=== PATIENT | female | born 1955 | race Two or more races ===

== ENCOUNTER 2018-10-08 05:23 | Inpatient (IN) | payer BC ==
[2018-10-08] VITALS (7 sets, daily range): BP systolic 114–153; BP diastolic 50–76
[~2018-10-08] VITALS: Ht 157.5 cm; Wt 76.7 kg
[~2018-10-08 05:23] MED LIST: ASPI-1159 PO; ATOR20TA65 PO; CHOL500063 PO; CLON0.5T PO; CYAN500T2 PO; FERR325T22 PO; FURO40TA5 PO; MAGN400C PO; METF-416 PO; NAPH1POW3 PO; POTA20TA82 PO; RIOC2.5T PO; TREP0.12 PO
[2018-10-08] MEDS ORDERED: INDOCYANINE GREEN 25 MG VIAL IV ONE (06:07)
[2018-10-08] MEDS ORDERED: SKIN ADHESIVE 0.7 GM EA TOP ONE (06:07)
[2018-10-08] MEDS ORDERED: BUPIVACAINE HCL 0.5% (5MG/ML) 50ML ONE (06:08)
[2018-10-08] MEDS ORDERED: FENTANYL CITRATE/PF 50MCG/ML 2ML VIAL ONE (07:38)
[2018-10-08] MEDS ORDERED: PROPOFOL 200MG/20ML VIAL IV ONE (07:38)
[2018-10-08] MEDS ORDERED: MIDAZOLAM HCL 2 MG/2 ML VIAL ONE (07:38)
[2018-10-08] MEDS ORDERED: ROCURONIUM BROMIDE 10MG/ML VIAL 5ML IV ONE ×2 (07:38→08:25)
[2018-10-08] MEDS ORDERED: ACETAMINOPHEN 325MG TABLET PO PRN (08:00)
[2018-10-08] MEDS ORDERED: ONDANSETRON HCL 4MG/2ML INJ IV PRN ×2 (08:00→09:45)
[2018-10-08] MEDS ORDERED: NEOSTIGMINE METHYLSULFATE 1MG/ML 10 ML VIAL ONE ×2 (08:53→09:13)
[2018-10-08] MEDS ORDERED: VECURONIUM BROMIDE 10 MG/VIAL IV ONE (08:53)
[2018-10-08] MEDS ORDERED: GLYCOPYRROLATE 0.2 MG/ML 2ML VIAL ONE (08:53)
[2018-10-08] MEDS ORDERED: MEPERIDINE HCL/PF 25MG/ML CPJ IV PRN (09:45)
[2018-10-08] MEDS ORDERED: FENTANYL CITRATE/PF 50MCG/ML 2ML VIAL IV PRN (09:45)
[2018-10-08] MEDS ORDERED: HYDROMORPHONE HCL/PF 2MG/ML CPJ IV PRN (09:45)
[2018-10-08] MEDS ORDERED: ESMOLOL HCL 10MG/ML 10ML VIAL IV ONE (09:47)
[2018-10-08] MEDS ORDERED: FUROSEMIDE 40MG/4ML VIAL IVP NR (10:19)
[2018-10-08] MEDS ORDERED: METOPROLOL TARTRATE 5MG/5ML VIAL IV NR (10:30)
[2018-10-08] MEDS ORDERED: METOPROLOL TARTRATE 5MG/5ML VIAL IV ONE (10:44)
[2018-10-08] MEDS ORDERED: FUROSEMIDE 40MG/4ML VIAL ONE (10:44)
[2018-10-08] MEDS: MORPHINE SULFATE 4 MG/ML CPJ (NOT FOR IM USE) IV PRN ×5 (11:23→17:03)
[2018-10-08] MEDS ORDERED: DEXTROSE 50% WATER 50ML SYRINGE IV PRN (13:45)
[2018-10-08] MEDS ORDERED: IPRATROPIUM/ALBUTEROL 0.5-3(2.5)MG/3ML NEB HHN PRN (13:45)
[2018-10-08] MEDS ORDERED: PANTOPRAZOLE SODIUM 40 MG/VIAL IV NR (15:20)
[2018-10-08] MEDS ORDERED: MORPHINE SULFATE 4 MG/ML CPJ (NOT FOR IM USE) IV PRN (15:23)
[2018-10-08] MEDS: SODIUM CHLORIDE 0.9% INJ 3ML FLUSH IVF SCH ×2 (15:43→19:50)
[2018-10-08 16:02] LABS: BG BASE EXCESS -0.2 mmol/L (-2.0-2.0); BG CARBOXYHEMOGLOBIN 0.8 % (0.5-1.5); BG DEOXYHEMOGLOBIN 7.2 % (0.0-5.0); BG FRACTION INSPIRED OXYGEN 36; BG METHEMOGLOBIN 0.3 % (0.0-1.5); BG OXYGEN SATURATION 92.7 % (92.0-98.5); BG OXYHEMOGLOBIN 91.7 % (94.0-97.0); BG PCO2 48.7 mmHg (35.0-45.0); BG PH 7.345 (7.350-7.450); BG PO2 70.7 mmHg (75.0-100.0); BG SAMPLE SITE RIGHT RADIAL; BG TOTAL HEMOGLOBIN 13.5 g/dL (12.0-18.0); BG VENT MODE NASAL CANNULA
[2018-10-08] MEDS: BUDESONIDE 0.5MG/2ML NEB HHN SCH ×2 (16:30→19:59)
[2018-10-08] MEDS: IPRATROPIUM/ALBUTEROL 0.5-3(2.5)MG/3ML NEB HHN SCH ×2 (16:31→19:57)
[2018-10-08 16:44] LABS: HEMATOCRIT. 40.8 % (36.0-48.0); HEMOGLOBIN. 13.2 g/dL (12.0-16.0); MEAN CORPUSCULAR VOLUME 86.8 fL (81.0-99.0); MEAN PLATELET VOLUME 8.9 fl (7.4-10.4); PLATELET 240 x1000/uL (130-400); RED BLOOD CELL COUNT 4.71 mill/uL (4.2-5.4)
[2018-10-08 16:52] LABS: CHLORIDE 101 mEq/L (98-107)
[2018-10-08] MEDS: INSULIN LISPRO 100 UNITS/ML SUBCUT SCH ×2 (17:33→21:00)
[2018-10-08] MEDS: DEXT 5%/0.45% NACL KCL 20MEQ/L 1,000 ML IV SCH (17:33)
[2018-10-08] MEDS: BLOOD SUGAR DIAGNOSTIC STRIP TEST SCH ×2 (17:33→21:52)
[2018-10-08 18:03] LABS: PLATELET ESTIMATE NORMAL
[2018-10-09] VITALS: BP 100/56
[2018-10-09 04:00] VITALS: BP 95/63
[2018-10-09] MEDS: SODIUM CHLORIDE 0.9% INJ 3ML FLUSH IVF SCH (04:32)
[2018-10-09] MEDS: IPRATROPIUM/ALBUTEROL 0.5-3(2.5)MG/3ML NEB HHN SCH ×4 (05:03→11:55)
[2018-10-09] MEDS: DEXT 5%/0.45% NACL KCL 20MEQ/L 1,000 ML IV SCH (05:26)
[2018-10-09] MEDS: MORPHINE SULFATE 4 MG/ML CPJ (NOT FOR IM USE) IV PRN (05:30)
[2018-10-09 06:00] VITALS: BP 105/54
[2018-10-09] MEDS: BLOOD SUGAR DIAGNOSTIC STRIP TEST SCH ×2 (07:30→12:30)
[2018-10-09 08:00] VITALS: BP 98/57
[2018-10-09] MEDS: INSULIN LISPRO 100 UNITS/ML SUBCUT SCH ×2 (08:00→13:00)
[2018-10-09] MEDS: BUDESONIDE 0.5MG/2ML NEB HHN SCH (08:07)
[2018-10-09] MEDS ORDERED: PANTOPRAZOLE SODIUM 40 MG/VIAL IV SCH (09:00)
[2018-10-09 10:00] VITALS: BP 100/55
[2018-10-09 11:25] VITALS: BP 95/53
== END 2018-10-09 16:55 | disposition home or self-care (01) | DRG 418 ==
LOC: OR 05:23 → 5EST 14:28
PROVIDERS: ADMIT Surgery; ATTEND Surgery
PROC: 0FT44ZZ Resection of Gallbladder, Percutaneous Endoscopic Approach (ICD-10-PCS; principal; 2018-10-08)
PROC: 8E0W4CZ Robotic Assisted Procedure of Trunk Region, Percutaneous Endoscopic Approach (ICD-10-PCS; 2018-10-08)
DX: K80.20 Calculus of gallbladder without cholecystitis without obstruction (principal); J96.10 Chronic respiratory failure, unspecified whether with hypoxia or hypercapnia; D64.9 Anemia, unspecified; E11.9 Type 2 diabetes mellitus without complications; E78.5 Hyperlipidemia, unspecified; I27.20 Pulmonary hypertension, unspecified; F41.9 Anxiety disorder, unspecified; I10 Essential (primary) hypertension; K58.9 Irritable bowel syndrome, unspecified; Z99.81 Dependence on supplemental oxygen; Z88.8 Allergy status to other drugs, medicaments and biological substances; Z88.6 Allergy status to analgesic agent; Z82.49 Family history of ischemic heart disease and other diseases of the circulatory system; Z90.49 Acquired absence of other specified parts of digestive tract; Z82.3 Family history of stroke; Z79.899 Other long term (current) drug therapy; Z79.84 Long term (current) use of oral hypoglycemic drugs; Z79.82 Long term (current) use of aspirin
CPT/HCPCS: 36415; 36600; 71045; 80048; 82375; 82805; 82962; 88304; 94002; 94640; C9113; J1940; J2250; J2270; J2405; J2704; J2710; J3010; J3490; J7620; J7626; Q9957

== ENCOUNTER → 2024-12-10 | Day surgery (SDC) | payer BC ==
[~2024-12-10] VITALS: Ht 157.5 cm; Wt 59.0 kg
[~2024-12-10] MED LIST changes: +ACETAMINOPHEN 325MG TABLET PO PRN; -ASPI-1159 PO; +ASPI-1497 PO; +ATROPINE SULFATE 1MG/10ML SYR IV PRN; -CLON0.5T PO; +CLON0.5T2 PO; -CYAN500T2 PO; +CYAN500T9 PO; +DIPHENHYDRAMINE 50MG/ML VIAL ONE; +FERR324T22 PO; -FERR325T22 PO; +LIDOCAINE HCL 1% 20ML VIAL ONE; -NAPH1POW3 PO; +POTA-205 PO; -POTA20TA82 PO; +SODIUM CHLORIDE 0.45% 500 ML IV ONE
[2024-12-10 07:37] LABS: BASOPHILS % 1.1 % (0.0-2.0); EOSINOPHILS % 1.4 % (0.0-5.0); HEMATOCRIT. 41.9 % (36.0-48.0); HEMOGLOBIN. 13.6 g/dL (12.0-16.0); LYMPHOCYTES % 20.3 % (20.0-50.0); MEAN CORPUSCULAR HEMOGLOBIN 29.6 pg (28.0-32.0); MEAN CORPUSCULAR HGB CONC 32.4 g/dL (31.0-37.0); MEAN CORPUSCULAR VOLUME 91.4 fL (81.0-99.0); MONOCYTES % 9.2 % (2.0-8.0); RED BLOOD CELL COUNT 4.59 mill/uL (4.2-5.4); RED CELL DISTRIBUTION WIDTH 15.6 % (11.6-14.6)
[2024-12-10 07:49] LABS: CHLORIDE 101 mEq/L (98-107); POTASSIUM 4.5 mEq/L (3.5-5.1); SODIUM 139 mEq/L (136-145)
[2024-12-10 07:50] LABS: CARBON DIOXIDE 29 mEq/L (21-32)
[2024-12-10 07:55] LABS: CREATININE 0.9 mg/dL (0.6-1.0); GLUCOSE 122 mg/dL (70-105); PROTHROMBIN TIME 11.1 sec (9.6-11.0); UREA NITROGEN BLOOD 7 mg/dL (9-23)
[2024-12-10 08:00] LABS: DIFFERENTIAL COMMENT 1
[2024-12-10 10:45] LABS: PLATELET 236 x1000/uL (130-400)
== END | disposition home or self-care (01) ==
LOC: CCL 06:56
PROVIDERS: ATTEND Internal Medicine
DX: I12.0 Hypertensive chronic kidney disease with stage 5 chronic kidney disease or end stage renal disease (principal); E11.22 Type 2 diabetes mellitus with diabetic chronic kidney disease; N18.6 End stage renal disease; Z79.82 Long term (current) use of aspirin; Z79.84 Long term (current) use of oral hypoglycemic drugs; Z79.899 Other long term (current) drug therapy; Z98.890 Other specified postprocedural states
CPT/HCPCS: 93451; 80048; 85025; 85610; 36415; 93005; C1893; C1769; J1200; J3490; J1644; 99152; A4606; G0500